=== PATIENT | male | born 1990 | race Hispanic/Latino ===

== ENCOUNTER 2016-04-02 16:50 | Emergency (ER) | payer SELFPAY ==
[2016-04-02] MEDS ORDERED: NORCO 10/325 ONE (18:44)
[2016-04-02] MEDS ORDERED: NORCO 10/325 PO ONE (18:48)
[2016-04-02] MEDS ORDERED: BOOSTRIX IM ONE (19:15)
[2016-04-02] MEDS ORDERED: XYLOCAINE TOPICAL 4% TP ONE (19:15)
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
[2016-04-02] MEDS ORDERED: TRIPLE ANTIBIOTIC TP ONE (20:36)
[2016-04-02 21:58] VITALS: BP 126/75
--- NOTE | 2016-04-03 09:15 | XRay Report ---
RIGHT SHOULDER, 3 VIEWS: HISTORY: Right shoulder pain. FINDINGS: There is a mildly comminuted fracture through the [id number] right clavicle with 1 cm superior displacement at the fracture site. The scapula and proximal right humerus are intact. There is normal articulation at the right shoulder. Normal soft tissues. IMPRESSION: Mildly displaced right clavicle fracture.
== END 2016-04-02 21:00 | disposition home or self-care (01) ==
LOC: ED 16:50
DX: S42.021A Displaced fracture of shaft of right clavicle, initial encounter for closed fracture (principal); S50.311A Abrasion of right elbow, initial encounter; S40.211A Abrasion of right shoulder, initial encounter; S40.212A Abrasion of left shoulder, initial encounter; F17.200 Nicotine dependence, unspecified, uncomplicated; V29.3XXA Motorcycle rider (driver) (passenger) injured in unspecified nontraffic accident, initial encounter; Y93.89 Activity, other specified; Y99.8 Other external cause status; Y92.89 Other specified places as the place of occurrence of the external cause
CPT/HCPCS: 90471; 90715; A6250